=== PATIENT | male | born 1995 | race Caucasian/White ===

== ENCOUNTER 2016-09-03 17:29 | Emergency (ER) | payer OTHER ==
[2016-09-03 19:18] VITALS: BP 138/64
--- NOTE | 2016-09-04 02:40 | ED ---
Laceration/Wound HPI - HPI Summary HPI Summary: Patient presents to ED with a laceration on top of head after colliding with another finishing inspector in a game. He denies LOC, SERRANO, memory loss, confusion, N/ V. Minimal blood loss. Denies medication use. Denies smoking, alcohol or drug use. No previous concussions or TBI. He is otherwise healthy. He denies visual disturbances, neck or back pain. Onset was 1 hour ago, remains constant and pain is 1/10 and does not radiate. - History of Current Complaint Stated Complaint: HEAD INJURY Time Seen by Provider: 09/03/16 17:51 Hx Obtained From: Patient Mechanism of Injury: Sharp/Blunt Trauma Onset/Duration: Sudden Onset Aggravating: Nothing Alleviating: Nothing Timing: Constant Onset Severity: Mild Current Severity: Mild Pain Intensity: 1 Pain Scale Used: 0-10 Numeric Associated Signs & Symptoms: Negative - Allergy/Home Medications Allergies/Adverse Reactions: Allergies Allergy/AdvReac Type Severity Reaction Status Date / Time Penicillins Allergy Unknown Verified 09/03/16 17:32 Reaction Details PMH/Surg Hx/FS Hx/Imm Hx Previously Healthy: Yes - Immunization History Hx Pertussis Vaccination: No Immunizations Up to Date: No Infectious Disease History: No Infectious Disease History: Denies: Traveled Outside the [place] in Last 30 Days - Social History Occupation: Unemployed Lives: With Family Alcohol Use: None Hx Substance Use: No Substance Use Type: Reports: None Hx Tobacco Use: No Smoking Status (MU): Never Smoked Tobacco Do You Chew or Dip Tobacco: No Review of Systems Constitutional: Negative Eyes: Negative ENT: Negative Respiratory: Negative Gastrointestinal: Negative Positive: Other - small 1cm laceration. Neurological: Negative Psychological: Normal All Other Systems Reviewed And Are Negative: Yes Physical Exam Triage Information Reviewed: Yes Vital Signs On Initial Exam: Initial Vitals Temp Pulse Resp BP Pulse Ox 98.7 F 99 16 128/78 98 09/03/16 17:32 09/03/16 17:32 09/03/16 17:32 09/03/16 17:32 09/03/16 17:32 Vital Signs Reviewed: Yes Appearance: Positive: Well-Appearing, No Pain Distress Skin: Positive: Warm, Skin Color Reflects Adequate Perfusion, Other - 1cm laceration to left parietal lobe Head/Face: Positive: Normal Head/Face Inspection Eyes: Positive: EOMI, MARCIA, Conjunctiva Clear Neck: Positive: Supple, No Lymphadenopathy Respiratory/Lung Sounds: Positive: Clear to Auscultation, Breath Sounds Present Cardiovascular: Positive: Normal, RRR Musculoskeletal: Positive: Normal, Strength/ROM Intact Neurological: Positive: Normal, Sensory/Motor Intact, Alert, Oriented to Person Place, Time Psychiatric: Positive: Normal AVPU Assessment: Alert - Olga Coma Scale Best Eye Response: 4 - Spontaneous Best Motor Response: 6 - Obeys Commands Best Verbal Response: 5 - Oriented Procedures - Laceration/Wound Repair 1 Location: head Description: Linear Betadine Prep?: No Laceration/Wound Explored: clean Closure: [place] #__ - 2 Layer Closure?: No Sterile Dressing Applied?: No Diagnostics - Vital Signs Vital Signs Temp Pulse Resp BP Pulse Ox 09/03/16 19:13 71 20 138/64 09/03/16 17:38 97.8 F 102 16 126/78 100 09/03/16 17:32 98.7 F 99 16 128/78 98 - Laboratory Lab Statement: Any lab studies that have been ordered have been reviewed, and results considered in the medical decision making process. Laceration Repair Course/Dx - Course Course Of Treatment: Neuro exam WNL. Patient c/o no pain. Small 1cm laceration to left parietal lobe area. minimal bleeding. Laceratin is linear without complication. superifical. 2 remigio placed. patient tolerated well. follow up with pcp and staple removal in 7-10 days. - Differential Dx Differental Diagnoses: Avulsion, Hematoma, Laceration, Tendon Laceration - Clinical Impression Provider Diagnoses: Laceration of head Discharge - Discharge Plan Condition: Stable Disposition: HOME Patient Education Materials: Staple Care (ED) Referrals: [facility] [Primary Care Provider] - Additional Instructions: Staple removal in 7-10 days. Wash and dry hair as normal starting tomorrow. If you develop any worsening symptoms, drainage from the area, fever, sweats or chills, come back to ED.
== END 2016-09-03 19:13 | disposition home or self-care (01) ==
LOC: ED 17:29
DX: S01.91XA Laceration without foreign body of unspecified part of head, initial encounter (principal); W50.0XXA Accidental hit or strike by another person, initial encounter; Y93.66 Activity, soccer; Y92.9 Unspecified place or not applicable; Y99.9 Unspecified external cause status
CPT/HCPCS: 12011; 99281